=== PATIENT | female | born 1955 | race Caucasian/White ===

== ENCOUNTER 2020-12-28 21:02 | Emergency (ER) | payer OTHER ==
[~2020-12-28] VITALS: Ht 167.6 cm; Wt 83.9 kg
== END 2020-12-28 23:04 | disposition home or self-care (01) ==
LOC: ER 21:02
DX: R42 Dizziness and giddiness (principal); J32.8 Other chronic sinusitis; R00.2 Palpitations

== ENCOUNTER 2022-05-26 11:37 | Outpatient (CLI) | payer OTHER | END 2022-05-26 11:39 | disposition home or self-care (01) | LOC: NUCLEAR 11:37 | PROVIDERS: ATTEND Internal Medicine | DX: M81.0 Age-related osteoporosis without current pathological fracture (principal); M85.9 Disorder of bone density and structure, unspecified ==

== ENCOUNTER 2023-06-04 11:45 | Outpatient (CLI) | payer OTHER | END 2023-06-04 11:50 | disposition home or self-care (01) | LOC: RAD 11:45 | DX: S82.843A Displaced bimalleolar fracture of unspecified lower leg, initial encounter for closed fracture (principal) ==

== ENCOUNTER 2023-07-23 10:38 | Outpatient (CLI) | payer OTHER | END 2023-07-23 10:42 | disposition home or self-care (01) | LOC: RAD 10:38 | DX: S82.841D Displaced bimalleolar fracture of right lower leg, subsequent encounter for closed fracture with routine healing (principal) ==

== ENCOUNTER 2023-12-07 10:37 | Outpatient (CLI) | payer OTHER ==
[2023-12-07] MEDS ORDERED: GLUMETZA500 MG PO (21:01)
[2023-12-07] MEDS ORDERED: ZETIA10 MG PO (21:02)
== END 2023-12-07 10:38 | disposition home or self-care (01) ==
LOC: SONOGRAMA 10:37
PROVIDERS: ATTEND Internal Medicine
DX: E04.1 Nontoxic single thyroid nodule (principal)

== ENCOUNTER 2023-12-07 20:54 | Emergency (ER) | payer OTHER ==
[~2023-12-07] VITALS: Ht 167.6 cm; Wt 77.1 kg
[2023-12-07] MEDS ORDERED: GLUMETZA500 MG PO (21:01)
[2023-12-07] MEDS ORDERED: ZETIA10 MG PO (21:02)
[2023-12-07] MEDS ORDERED: NA PHOS,M-B/NA PHOS,DI-BA 1 BOTTLE ENEMA RECTAL ONE (23:00)
== END 2023-12-08 00:31 | disposition home or self-care (01) ==
LOC: ER 20:54
DX: K59.00 Constipation, unspecified (principal); E11.9 Type 2 diabetes mellitus without complications; Z79.84 Long term (current) use of oral hypoglycemic drugs